=== PATIENT | male | born 1985 | race Caucasian/White ===

== ENCOUNTER 2017-10-31 18:41 | Emergency (ER) | payer OTHER ==
[~2017-10-31] VITALS: Ht 177.8 cm; Wt 126.0 kg
[2017-10-31 18:53] VITALS: BP 129/73; PULSE 99; RESP 19; TEMP 99.1; O2SAT 98
--- NOTE | 2017-10-31 20:44 | PD ---
HPI Chief Complaint: Laceration/Skin Injury Time Seen by Provider: 20:30 Travel History International Travel<30 days: No Contact w/Intl Traveler<30days: No Traveled to known affect area: No History of Present Illness HPI 32-year-old male with no significant medical history presents emergency department for evaluation of a laceration to his left bicep from a piece of glass from a window. Patient denies any limitations in range of motion alterations in sensation. Denies this as being self-inflicted. Patient denies any significant pain. He is uncertain if he is up-to-date on his tetanus vaccination. No other symptoms to report. [facility] Past Medical History Medical History: Denies Significant Hx Family History Family Breast Cancer: No Social History Tobacco Use: No Allergies-Medications (Allergen,Severity, Reaction): Coded Allergies: Penicillins (Verified Allergy, Severe, Anaphylaxis, 10/31/17) Review of Systems Except as stated in HPI: all other systems reviewed are Neg Physical Exam Narrative GENERAL: Well-nourished, well-developed male patient, no acute distress. SKIN: Focused skin assessment warm/dry. 4 cm superficial laceration to the left anterior medial bicep. It is poorly approximated however bleeding is controlled. HEAD: Normocephalic. EYES: No scleral icterus. No injection or drainage. NECK: Supple, trachea midline. No JVD or lymphadenopathy. CARDIOVASCULAR: Regular rate and rhythm without murmurs, gallops, or rubs. RESPIRATORY: Breath sounds equal bilaterally. No accessory muscle use. MUSCULOSKELETAL: No cyanosis, or edema. Patient can fully flex and extend the bicep of the left arm. Distal pulses are palpable. Cap refills within normal limits. BACK: Nontender without obvious deformity. No CVA tenderness. Data Data Last Documented VS Vital Signs Date Time Temp Pulse Resp B/P (MAP) Pulse Ox O2 Delivery O2 Flow Rate FiO2 10/31/17 18:53 99.1 99 19 129/73 (91) 98 Orders Orders Tetanus/Diphtheria Tox Adult (Tetanus/Di (10/31/17 20:45) Wound Care (10/31/17 20:42) Ed Discharge Order (10/31/17 20:43) MDM Medical Decision Making Medical Screen Exam Complete: Yes Emergency Medical Condition: Yes Medical Record Reviewed: Yes Differential Diagnosis Laceration superficial versus deep versus abrasion versus avulsion Narrative Course 32-year-old male presents emergency department for evaluation of a laceration to his left proximal upper extremity. Patient appears without distress. No focal deficits weakness. Bleeding is controlled. Patient is updated on his tetanus. Wound is approximated without difficulty. Patient is discharged home with care instructions. He agrees to return immediately with acute worsening symptoms. Procedures Procedure Narrative LACERATION LOCATION: Left bicep LENGTH: 4 cm NUMBER OF STITCHES/ELICIA: 3 elicia REPAIR: The area of the laceration was prepped with Betadine and sterilely draped. The wound was copiously irrigated and explored without evidence of foreign body, tendon injury or neurovascular injury. The wound was closed using [elicia]. This was a [single layer repair. A sterile dressing was applied. The patient was advised to keep the dressing clean and dry. Patient tolerated the procedure well. Diagnosis Primary Impression: Laceration of arm Qualified Codes: S41.112A - Laceration without foreign body of left upper arm , initial encounter Referrals: Primary Care Physician Patient Instructions: General Instructions, Staple Care (ED) Additional Instructions: Elicia are to be removed in 10 days. This can be done emergency department or her primary care provider's office Keep the area clean and dry. You may shower Follow-up the primary care provider Return immediately with acute worsening symptoms Med/Other Pt SpecificInfo: No Change to Meds Disposition: 01 DISCHARGE HOME Condition: Stable LaciTiarra RENTERIA Oct 31, 2017 20:44
[2017-10-31] MEDS ORDERED: TETANUS/DIPHTHERIA TOXOID ADULT 0.5 ML VIAL IM ONE (20:45)
== END 2017-10-31 21:17 | disposition home or self-care (01) ==
LOC: NEPD 18:41
DX: S41.112A Laceration without foreign body of left upper arm, initial encounter (principal); Z23 Encounter for immunization; Z88.0 Allergy status to penicillin; W25.XXXA Contact with sharp glass, initial encounter
CPT/HCPCS: 12002; 90471; 90714